=== PATIENT | male | born 1985 | race African-American/Black ===

== ENCOUNTER 2019-11-12 17:22 | Emergency (ER) | payer OTHER ==
[2019-11-12] MEDS ORDERED: KETOROLAC TROMETHAMINE 30 MG/1 ML VIAL IVPUSH ONE (17:30)
[2019-11-12] MEDS ORDERED: SODIUM CHLORIDE 1,000 ML IV STA (17:30)
[2019-11-12] MEDS ORDERED: ONDANSETRON 4 MG/2 ML VIAL IVPUSH ONE (17:31)
[2019-11-12] MEDS ORDERED: KETOROLAC TROMETHAMINE 30 MG/1 ML VIAL ONE (17:33)
[2019-11-12] MEDS ORDERED: ONDANSETRON 4 MG/2 ML VIAL ONE (17:34)
[2019-11-12 17:41] VITALS: BMI 27.6
[2019-11-12 17:44] VITALS: BP 122/63; PULSE 86
[2019-11-12 18:00] LABS: BASO % 0.6 % (0-2.0); EOS % 0.1 % (0-4.5); HEMATOCRIT 38.7 % (35.4-49); HEMOGLOBIN 12.1 GM/dl (11.7-16.9); LYMPH % 4.8 % (8-40); MCH 24.2 pg (25.7-33.7); MCHC 31.2 g/dl (32.0-35.9); MEAN CELL VOLUME 77.6 fl (80-96); MEAN PLT VOLUME 8.7 fl (7.5-11.1); MONO % 6.7 % (3.8-10.2); NEUT % 87.8 % (42.8-82.8); PLATELET COUNT 218 K/MM3 (134-434); RBC 4.98 M/mm3 (4.00-5.60); RDW 12.5 % (11.9-15.9); WHITE BLOOD COUNT 11.3 K/mm3 (4.0-10.8)
[2019-11-12 18:08] LABS: ALBUMIN 4.4 g/dl (3.4-5.0); BILIRUBIN,TOTAL 1.4 mg/dl (0.2-1); CALCIUM 8.9 mg/dl (8.5-10); CREATININE 1.3 mg/dl (0.55-1.3); POTASSIUM 3.9 mmol/L (3.5-5.1); TOT PROT 7.8 g/dl (6.4-8.2)
--- NOTE | 2019-11-12 18:30 | PDOC ---
Documentation entered by Sera Cordero SCRIBE, acting as scribe for Carson Orta MD. Carson Orta MD: This documentation has been prepared by the scribeGil Ana, SCRIBE, under my direction and personally reviewed by me in its entirety. I confirm that the documentation accurately reflects all work, treatment, procedures, and medical decision making performed by me. 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 Patient said the pain "stays in one spot" and hurts upon pressure. Patient also said he has been feeling nauseous. Pain started yesterday. Now has pressure in LLQ of abdomen as well. No fall, trauma or lifting. No dysuria . No hx of kidney stones. Denies COVID. Patient denies vomiting, diarrhea, hematuria, and self medicating for the pain. Allergies: NKDA 11/12/19 17:54 Past History - Medical History Allergies/Adverse Reactions: Allergies Allergy/AdvReac Type Severity Reaction Status Date / Time No Known Allergies Allergy Verified 11/12/19 17:24 Home Medications: Ambulatory Orders NK [No Known Home Medication] 11/12/19 Review of Systems - Review of Systems Able to Perform ROS?: Yes Comments:: 11/12/19 17:38 GENERAL/CONSTITUTIONAL: No fever or chills. No weakness. HEAD, EYES, EARS, NOSE AND THROAT: No change in vision. No ear pain or discharge. No sore throat. CARDIOVASCULAR: No chest pain or shortness of breath. RESPIRATORY: No cough, wheezing, or hemoptysis. GASTROINTESTINAL: +Nausea. No vomiting, diarrhea or constipation. GENITOURINARY: No dysuria, frequency, or change in urination. MUSCULOSKELETAL: +Back pain, sharp in left flank area. No neck pain. SKIN: No rash NEUROLOGIC: No headache, vertigo, loss of consciousness, or change in strength/sensation. ENDOCRINE: No increased thirst. No abnormal weight change. HEMATOLOGIC/LYMPHATIC: No anemia, easy bleeding, or history of blood clots. ALLERGIC/IMMUNOLOGIC: No hives or skin allergy. *Physical Exam - Physical Exam 11/12/19 17:40 GENERAL: Awake, alert, and fully oriented, in no acute distress HEAD: No signs of trauma EYES: PERRLA, EOMI, sclera anicteric, conjunctiva clear ENT: Auricles normal inspection, hearing grossly normal, nares patent, oropharynx clear without exudates. Moist mucosa NECK: Normal ROM, supple, no lymphadenopathy, JVD, or masses LUNGS: Breath sounds equal, clear to auscultation bilaterally. No wheezes, and no crackles HEART: Regular rate and rhythm, normal S1 and S2, no murmurs, rubs or gallops ABDOMEN: +Tenderness to left lower quadrant and left flank area. Normoactive bowel sounds. No masses EXTREMITIES: Normal range of motion, no edema. No clubbing or cyanosis. No cords, erythema, or tenderness NEUROLOGICAL: Cranial nerves II through XII grossly intact. Normal speech. SKIN: Warm, Dry, normal turgor, no rashes or lesions noted. ED Treatment Course - LABORATORY CBC & Chemistry Diagram: 11/12/19 17:35 11/12/19 17:35 - ADDITIONAL ORDERS Additional order review: 11/12/19 18:51 Pt is resting more comfortably, temp lower to 100.4 Feeling better, awaiting CT abdomen/pelvis Further disposition as per Dr. Bautista, will sign out at 1900 - RADIOLOGY Radiology Studies Ordered: 11/12/19 19:00 Pt is feeling better after fluids and Toradol Temp now 100.4 DDx: diverticulitis, stone. Further disposition as per Dr. Moya, signed out at 1900 Discharge - Discharge Information Problems reviewed: Yes Clinical Impression/Diagnosis: Abdominal pain Qualifiers: Abdominal location: left lower quadrant Qualified Code(s): R10.32 - Left lower quadrant pain Condition: Stable - Follow up/Referral Referrals: Ankur Carlisle MD [Primary Care Provider] - - Patient Discharge Instructions - Post Discharge Activity
[2019-11-12 18:44] VITALS: TEMP 100.4
--- NOTE | 2019-11-12 20:26 | PDOC ---
*Physical Exam - Vital Signs Last Vital Signs Temp Pulse Resp BP Pulse Ox 100.4 F H 86 18 122/63 100 11/12/19 18:43 11/12/19 17:23 11/12/19 17:23 11/12/19 17:23 11/12/19 17:23 ED Treatment Course - LABORATORY CBC & Chemistry Diagram: 11/12/19 17:35 11/12/19 17:35 - ADDITIONAL ORDERS Additional order review: Laboratory Results 11/12/19 11/12/19 17:35 17:25 Sodium 137 Potassium 3.9 Chloride 102 Carbon Dioxide 24 Anion Gap 11 BUN 12.0 Creatinine 1.3 Est GFR (CKD-EPI)AfAm 83.09 Est GFR (CKD-EPI)NonAf 71.69 Random Glucose 100 Calcium 8.9 Total Bilirubin 1.4 H AST 25 ALT 21 Alkaline Phosphatase 49 Total Protein 7.8 Albumin 4.4 Urine Color Yellow Urine Appearance Clear Urine pH 5.5 Urine Protein Negative Urine Glucose (UA) Negative Urine Ketones Negative Urine Blood Negative Urine Nitrite Negative Urine Bilirubin Negative Urine Urobilinogen 0.2 Ur Leukocyte Esterase Negative 11/12/19 17:35 RBC 4.98 MCV 77.6 L MCHC 31.2 L RDW 12.5 MPV 8.7 Neutrophils % 87.8 H Lymphocytes % 4.8 L Monocytes % 6.7 Eosinophils % 0.1 Basophils % 0.6 - Medications Given in the ED: ED Medications Discontinued Medications Generic Name Dose Route Start Last Admin Trade Name Freq PRN Reason Stop Dose Admin Sodium Chloride 1,000 mls @ 1,000 mls/hr 11/12/19 17:30 11/12/19 17:44 Normal Saline - IV 11/12/19 18:29 1,000 mls/hr ASDIR STA Administration Ketorolac Tromethamine 30 mg 11/12/19 17:30 11/12/19 17:43 Toradol Injection - IVPUSH 11/12/19 17:31 30 mg ONCE ONE Administration Ondansetron HCl 4 mg 11/12/19 17:31 11/12/19 17:43 Zofran Injection IVPUSH 11/12/19 17:32 4 mg ONCE ONE Administration Medical Decision Making - Medical Decision Making 11/12/19 20:19 Pt was signed out to me. Came with fever. Pt states that he has been working out and that he has left groin strain. 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 Today presents with a fever. Pt had a sore throat yesterday left tonsil area. Pt took nothing for the fever and came to the ER. Received meds. Feels better. States that he has had only gatorade and pedialyte to drink today. Pt states that he drinks a vegetable powder supplement and that he has been suffering with gas. Pt has no diarrhea and no constipation. Pt has no dysuria Pt has normal CT scan and normal labs and normal UA. WBC minimally elevated at 11 Pt will have a rapid strep culture sent/ 11/12/19 21:59 Rapid strep normal; this is likely a viral illness; motrin and tylenol for the fever; return for worsening symptoms. Discharge - Discharge Information Problems reviewed: Yes Clinical Impression/Diagnosis: Viral syndrome Abdominal pain Qualifiers: Abdominal location: left lower quadrant Qualified Code(s): R10.32 - Left lower quadrant pain Condition: Improved Disposition: HOME - Admission No - Follow up/Referral Referrals: Ankur Carlisle MD [Primary Care Provider] - - Patient Discharge Instructions Patient Printed Discharge Instructions: DI for Viral Syndrome - Post Discharge Activity
[2019-11-12] MEDS ORDERED: ACETAMINOPHEN 500 MG TABLET (FP) PO ONE (20:53)
[2019-11-12] MEDS ORDERED: ACETAMINOPHEN 325 MG TABLET (FP) ONE (20:56)
== END 2019-11-12 21:00 | disposition home or self-care (01) ==
LOC: FER 17:22
PROC: 3E033NZ Introduction of Analgesics, Hypnotics, Sedatives into Peripheral Vein, Percutaneous Approach (ICD-10-PCS; principal; 2019-11-12)
PROC: 3E033GC Introduction of Other Therapeutic Substance into Peripheral Vein, Percutaneous Approach (ICD-10-PCS; 2019-11-12)
PROC: 3E0337Z Introduction of Electrolytic and Water Balance Substance into Peripheral Vein, Percutaneous Approach (ICD-10-PCS; 2019-11-12)
DX: R10.32 Left lower quadrant pain (principal)
CPT/HCPCS: 36415; 74177-TC; 80053; 81003; 85025; 87880; 96361; 96374; 96375; 99284-25; Q9967

== ENCOUNTER 2021-09-28 17:05 | Emergency (ER) | payer OTHER ==
[2021-09-28 17:18] VITALS: BP 132/80; PULSE 82; TEMP 98.5; BMI 27.1
[2021-09-28] MEDS ORDERED: NAPROXEN 375 MG TABLET PO ONE (17:35)
[2021-09-28] MEDS ORDERED: NAPROXEN 375 MG TABLET ONE (18:00)
== END 2021-09-28 18:04 | disposition home or self-care (01) ==
LOC: FER 17:05
DX: S13.9XXA Sprain of joints and ligaments of unspecified parts of neck, initial encounter (principal); G44.209 Tension-type headache, unspecified, not intractable; V89.2XXA Person injured in unspecified motor-vehicle accident, traffic, initial encounter
CPT/HCPCS: 99283-25

== ENCOUNTER 2022-10-07 20:32 | Emergency (ER) | payer OTHER ==
[2022-10-07 20:49] VITALS: BP 116/72; PULSE 70; RESP 18; TEMP 98; BMI 29.8
[2022-10-07] MEDS ORDERED: DIPHTH,PERTUSS(ACELL),TET 0.5 ML DISP.SYRIN IM ONE ×2 (20:57→21:12)
[2022-10-07] MEDS ORDERED: AMOX TR/POT CLAV 875MG/125MG TABLETS (FP) PO ONE (22:46)
[2022-10-07] MEDS ORDERED: AMOX TR/POT CLAV 875MG/125MG TABLETS (FP) ONE (22:59)
== END 2022-10-07 23:08 | disposition home or self-care (01) ==
LOC: FER 20:32
PROC: 3E0234Z Introduction of Serum, Toxoid and Vaccine into Muscle, Percutaneous Approach (ICD-10-PCS; principal; 2022-10-07)
DX: M79.642 Pain in left hand (principal); S60.552A Superficial foreign body of left hand, initial encounter; W45.8XXA Other foreign body or object entering through skin, initial encounter
CPT/HCPCS: 73130-TC-LT-FY; 90471; 90715; 99283-25

== ENCOUNTER 2024-04-19 20:57 | Emergency (ER) | payer OTHER ==
[2024-04-19 21:06] VITALS: BP 127/73; PULSE 79; RESP 16; TEMP 98.8; BMI 29.9
[2024-04-19] MEDS ORDERED: IBUPROFEN 600 MG TABLET (FP) PO ONE (22:02)
[2024-04-19] MEDS: IBUPROFEN 600 MG TABLET (FP) PO ONE (22:03)
[2024-04-20 00:52] LABS: HIV INTERPRETATION NEGATIVE (NEGATIVE)
== END 2024-04-19 22:04 | disposition home or self-care (01) ==
LOC: FER 20:57
DX: J02.9 Acute pharyngitis, unspecified (principal)
CPT/HCPCS: 36415; 86803; 87389; 87651; 99283-25